=== PATIENT | female | born 1965 | race Caucasian/White ===

== ENCOUNTER → 2023-12-29 18:04 | Outpatient (REF) | payer OTHER, SELFPAY | LOC: WDC 18:04 | PROVIDERS: ATTENDING PHYSICIAN Student in an Organized Health Care Education/Training Program | DX: Z12.31 Encounter for screening mammogram for malignant neoplasm of breast (principal) | CPT/HCPCS: 77063; 77067 ==

== ENCOUNTER → 2024-01-28 07:54 | Outpatient (REF) | payer OTHER, SELFPAY | LOC: WDC 07:54 | PROVIDERS: ATTENDING PHYSICIAN Student in an Organized Health Care Education/Training Program | DX: N63.31 Unspecified lump in axillary tail of the right breast (principal) | CPT/HCPCS: 76642 ==

== ENCOUNTER 2024-06-02 06:24 | Day surgery (SDC) | payer OTHER, SELFPAY | END 2024-06-02 11:47 | disposition home or self-care (01) | LOC: GI 06:24 | PROVIDERS: ATTENDING PHYSICIAN Internal Medicine Gastroenterology | DX: Z12.11 Encounter for screening for malignant neoplasm of colon (principal); Z83.719 Family history of colon polyps, unspecified; Z80.0 Family history of malignant neoplasm of digestive organs; K64.8 Other hemorrhoids; K57.30 Diverticulosis of large intestine without perforation or abscess without bleeding | CPT/HCPCS: G0105 ==

== ENCOUNTER → 2024-07-04 11:59 | Outpatient (REF) | payer OTHER, SELFPAY | LOC: HWRAD 11:59 | PROVIDERS: ATTENDING PHYSICIAN Student in an Organized Health Care Education/Training Program | DX: M25.511 Pain in right shoulder (principal) | CPT/HCPCS: 73030 ==